=== PATIENT | male | born 1960 | race African-American/Black ===

== ENCOUNTER → 2018-02-17 | Outpatient (CLI) | payer OTHER ==
[~2018-02-17] VITALS: Ht 180.3 cm; Wt 71.7 kg
[~2018-02-17] MED LIST: ADVAIR HFA120 INHALA IH; ADVIL,NUPRIN,M200 MG PO; AMLODIPINE BESY10 MG PO; AMLODIPINE BESYL5 MG PO; BACTRIM,SEPT1 TABLE1 PO; BAYER CHEWABLE81 MG PO; DESCOVY 200-251 EACH PO; DUONEB 2.5-0.5 M3 ML AEROSOL; EDURANT25 MG PO; ERGOCALCIF50000 UNIT PO; EVOTAZ 300 MG-1 EACH PO; FAMOTIDINE20 MG PO; HYDROCHLOROTHIA25 MG PO; LISINOPRIL10 MG PO; LISINOPRIL20 MG PO; LOPRESSOR25 MG PO; NORVIR100 MG PO; PERCOCET 5/31 TABLET PO; POTASSIUM CHLO20 ME2 PO; PROAIR HFA8.5 GM IH; REYATAZ300 MG PO; SPIRIVA RESPIMAT4 GM IH; TAMSULOSIN HCL0.4 MG PO; TRUVADA1 TABLET PO; VITAMIN D50000 UNI4 PO
== END | disposition home or self-care (01) ==
LOC: AMB 10:24
PROC: 0DJD8ZZ Inspection of Lower Intestinal Tract, Via Natural or Artificial Opening Endoscopic (ICD-10-PCS; principal; 2018-02-17)
DX: Z08 Encounter for follow-up examination after completed treatment for malignant neoplasm (principal); B20 Human immunodeficiency virus [HIV] disease; Z85.038 Personal history of other malignant neoplasm of large intestine; Z87.891 Personal history of nicotine dependence; Z86.718 Personal history of other venous thrombosis and embolism
CPT/HCPCS: 93005